=== PATIENT | male | born 1985 | race Caucasian/White ===

== ENCOUNTER 2018-06-07 10:15 | Emergency (ER) | payer SELFPAY ==
[~2018-06-07] VITALS: Ht 182.9 cm; Wt 54.5 kg
[2018-06-07 10:29] VITALS: BP 142/93; TEMP 98.3
[2018-06-07] MEDS ORDERED: AMOXICILLIN875 MG PO (11:11)
[2018-06-07] MEDS ORDERED: NORCO 325 MG-7.1 TAB PO (11:11)
[2018-06-07 11:47] VITALS: PULSE 73
== END 2018-06-07 11:48 | disposition home or self-care (01) ==
LOC: COL.ER 10:15
DX: K04.7 Periapical abscess without sinus (principal); K02.9 Dental caries, unspecified; F17.210 Nicotine dependence, cigarettes, uncomplicated
CPT/HCPCS: J1885